=== PATIENT | male | born 1980 | race Hispanic/Latino ===

== ENCOUNTER 2016-05-09 19:46 | Emergency (ER) | payer OTHER ==
[~2016-05-09] VITALS: Ht 162.6 cm; Wt 100.0 kg
--- NOTE | 2016-05-09 19:44 | ED.REPORT ---
HPI-Abd Pain M Under 40 Date of Service May 09, 2016 ED Provider: Gee Wills DO Pt is a 36 y.o. male who presents to the ED via EMS c/o sudden onset severe abdominal pain. Pt describes pain as "twisting of his intestines" and reports that it improves if he is still for an extended period of time and that pain decreases when pressure is applied. Per EMS pt was wrestling with his daughter on the ground when the pain occurred, when they arrived pt was hypertensive and tachycardic. Pt was lying in a prone position with a blanket under his abdomen, they transported him in this same position. Upon examination pt states pain is improved and is no longer in prone position. He denies changes in BM. Nursing Notes Stated Complaint: ABDOMINAL PAIN Nursing Notes Reviewed: Yes Allergies: Coded Allergies: No Known Allergies (Unverified , 05/09/16) Scheduled PRN Cyclobenzaprine (Cyclobenzaprine) 10 Mg Tablet 10 MG PO TID PRN PRN Spasm General Time Seen by MD: 19:44 Chief Complaint Abdominal pain Hx Obtained From: Patient, EMS Arrived By: Ambulance Sudden in Onset?: Yes Onset Occurred: Just prior to arrival Symptom Duration: Since onset Location: : Periumbilical Quality: Painful Severity: Current: Severe Recent Healthcare: No recent doctor visit, No recent hospitalization Past Medical History Past Medical History None reported Past Surgical History Hand Social History Other Social History: Good social support, Ambulatory Status Independent Review of Systems GI: Reports: Abdominal pain, Denies: Constipation, Diarrhea Complete sys rev & neg: except as marked. Physical Exam Initial Vital Signs Initial VS: Reviewed Head / Eyes: Atraumatic, Normocephalic Extremities: Vascular intact, Neuro intact Skin: Warm, Dry, No cyanosis Neurologic: Alert, Oriented, Nonfocal Psychiatric: Mood/affect normal, Behavior normal, Normal thought content General/Constitutional: Awake, Alert Appearance / Presentation: Positive: In pain, Obese, Uncomfortable Respiratory / Chest: Atraumatic, Breath sounds NL, Breath sounds = bilat, No respiratory distress, No rales, No rhonchi, No wheezing, No retractions, No stridor Cardiovascular: Regular rhythm, Heart sounds NL, No gallop, No murmurs, No rubs , Peripheral circulation NL Heart Rate / Rhythm: Positive: Tachycardia Abdomen: Atraumatic, No guarding, No rebound, No hernia, No palpable mass, No pulsatile mass Tenderness/Guarding/Rebound: Positive: Tender periumbilical Bowel Sounds / Distention: Positive: Distention mild Back: Atraumatic Interpretation & Diagnostics Lab Results Interpretation Test 05/09/16 20:05 05/09/16 21:12 White Blood Count 9.0th/mm3 (3.8-10.1) Red Blood Count 4.85mil/mm3 (4.40-5.80) Hemoglobin 14.1g/dL (13.8-17.2) Hematocrit 40.3% (41.0-50.0) Mean Corpuscular Volume 83.1fL (81-100) Mean Corpuscular Hemoglobin 29.1pg (27.0-35.0) Mean Corpuscular Hemoglobin Concent 35.0% (32.0-37.0) Red Cell Distribution Width 13.0% (12.3-15.4) Platelet Count 217bil/L (150-400) Neutrophils (%) (Auto) 49.9% (40-74) Lymphocytes (%) (Auto) 36.2% (14-46) Monocytes (%) (Auto) 11.4% (4-12) Eosinophils (%) (Auto) 2.0% (0-5) Basophils (%) (Auto) 0.3% (0-3) Prothrombin Time 10.0sec (8.1-12.5) Prothromb Time International Ratio 0.94ratio Sodium Level 135mEq/L (134-144) Potassium Level 3.7mEq/L (3.5-5.2) Chloride Level 97mEq/L (97-108) Carbon Dioxide Level 26mmol/L (18-29) Blood Urea Nitrogen 14mg/dL (6-20) Creatinine 0.93mg/dL (0.76-1.27) Estimat Glomerular Filtration Rate 98mL/min (>59) Glucose Level 112mg/dL (60-99) Lactic Acid Level 1.6mmol/L (0.4-2.0) Calcium Level 8.2mg/dL (8.5-10.1) Magnesium Level 2.1mg/dL (1.6-2.6) Total Bilirubin 0.3mg/dL (0.0-1.2) Aspartate Amino Transf (AST/SGOT) 20U/L (0-50) Alanine Aminotransferase (ALT/SGPT) 44U/L (0-44) Alkaline Phosphatase 51U/L (25-150) Total Protein 6.9g/dL (6.4-8.4) Albumin 3.9g/dL (3.4-5.0) Lipase 23U/L (13-60) Urine Color Yellow (YELLOW) Urine Appearance Clear (CLEAR,HAZY) Urine pH 7.0 (5.0-8.0) Urine Specific [place] 1.010 (1.003-1.035) Urine Protein Negativemg/dL (NEG,TRACE) Urine Glucose (UA) Negativemg/dL (NEGATIVE) Urine Ketones Negativemg/dL (NEGATIVE) Urine Occult Blood Negative (NEGATIVE) Urine Nitrite Negative (NEGATIVE) Urine Bilirubin Negative (NEGATIVE) Urine Urobilinogen Normalmg/dL (NORMAL) Urine Leukocyte Esterase Negative (NEGATIVE) Urine RBC 0-2/hpf (0-2) Urine WBC 0-5/hpf (0-5) Urine Epithelial Cells Few/hpf (NONE-MOD) Urine Crystals None seen (NONE SEEN) Urine Bacteria Few/hpf (NONE-FEW) Urine Hyaline Casts None/lpf (NONE) Urine Granular Casts None seen (NONE SEEN) Urine Waxy Casts None seen (NONE SEEN) Urine Red Blood Cell Casts None seen (NONE SEEN) Urine White Blood Cell Casts None seen (NONE SEEN) Urine Mucus None seen (None Seen) Urine Trichomonas None seen (NONE SEEN) Urine Yeast None (NONE SEEN) Urinalysis Comment None Urine Culture Reflexed Not indicated ECG Interpretation Time: 20:05 Interpreted by: ED physician Normal ECG Interpretation: Normal sinus rhythm Rhythm / Conduction: Tachycardia (139) Urinalysis Interpretation Urinalys reviewed and NL CT Abd / Pelvis Interpretation IMPRESSION: 1. Normal aorta. No aneurysm or dissection. 2. No findings to explain severe abdominal pain. 3. Small hiatal hernia. Dictated by: Meghna Pino M.D. on 05/09/2016 at 20:52 Approved by: Meghna Pino M.D. on 05/09/2016 at 20:59 Re-Eval/Medical Decision Med Decision/Clinical Course 36-year-old male who presented with excruciating abdominal pain was only relieved by laying on his stomach and applying pressure. He was sent for CT scan immediately upon arrival as EMS was very concerned about the severe amount pain in his abdomen and had to be scanned in a prone position due to pain. He was given 50 of fentanyl in the ambulance. He has a negative past medical history. A comprehensive workup was performed including a CT angiogram chest and abdomen to rule out aortic dissection/aneurysm was performed but all returned negative. Patient remained tachycardic and after he was given a total of 4 L his heart rate decreased from the 130s down to about 110. His abdominal pain was relieved with diazepam 10 mg. Lactic acid was negative making ischemic bowel less likely. There is no signs of appendicitis or other acute abdominal pathology. I think that his tachycardia could be related to anxiety and pain initially as well as some dehydration since it improved with fluids. His pain seems to be related to a bowel muscle spasm as I cannot localize not localize any other source and the pain seems to be superficial Source of Hx: Old records Re-Evaluation/Progress #1: Time of Eval: 21:35 Re-Evaluation/Progress Note: Pt rechecked. Pt states he is experiencing abdominal discomfort. Re-Evaluation/Progress #2: Time of Eval: 23:02 Patient Status: Pain resolved Re-Evaluation/Progress Note: Pt rehecked. Pt states he is feeling relaxed and his pain has resolved. Pt's abdomen is non-tender. Pt is still tachycardic, will administer additional fluids. Discussed plan for discharge and need for follow-up, pt understands and agrees with plan. Re-Evaluation/Progress #3: Time of Eval: 00:13 Re-Evaluation/Progress Note: Pt rechecked. Pt is still tachycardic. Counseled Regarding: Diagnosis, Lab results, Need for follow-up, When/why to return to ED Patient Discharge & Departure Primary Impression: Abdominal spasms Additional Impressions: Generalized abdominal pain Anxiety Ruled Out: Abdominal aortic aneurysm, Aortic dissection Disposition: Home Discharge Condition All VS Reviewed: Yes Condition: Stable Patient Instructions: Acute Abdominal Pain (ED) Additional Instructions: Thank you for entrusting us with your care today. You examination included interview, physical exam, lab work, abdominal CT scan, and EKG. You examination was reassuring and no serious mechanism for your abdominal pain was found. It appears you may have abdominal muscle spasms. I recommend you follow-up with your primary care provider next week. Return to the ED if you experience any new or worsening symptoms Referrals: [facility] Scribe Attestation Portions of this note were transcribed by Jason Guaman. Dr. Johann Castro personally performed the history, physical exam and medical decision-making; I reviewed and confirmed the accuracy of the information in the transcribed note. Signed by: Karissa Cunningham, 05/10/16 and 0024. copies to: [facility] Gee Wills DO May 09, 2016 19:44 JASON GUAMAN May 09, 2016 21:25 Referrals: [facility] Scribe Attestation Portions of this note were transcribed by Jason Guaman. Dr. Johann Castro personally performed the history, physical exam and medical decision-making; I reviewed and confirmed the accuracy of the information in the transcribed note. Signed by: Karissa Cunningham, 05/10/16 and 0024. copies to: [facility] Gee Wills DO May 09, 2016 19:44 JASON GUAMAN May 09, 2016 21:25 Gee Wills DO May 09, 2016 19:44 JASON GUAMAN May 09, 2016 21:25
[~2016-05-09 19:46] MED LIST: 0.9% Sodium Chloride 1,000 ML IV ONE; HYDROmorphone 1 mg/mL Inj IVPUSH PRN
[2016-05-09 19:52] VITALS: BP 145/99; PULSE 130; RESP 24; O2SAT 96
[2016-05-09 20:22] LABS: BASOPHILS % (AUTO) 0.3 % (0-3); MONOCYTES % (AUTO) 11.4 % (4-12); Mean Corpuscular Hemoglobin 29.1 pg (27.0-35.0); Mean Corpuscular Volume 83.1 fL (81-100); NEUTROPHILS % (AUTO) 49.9 % (40-74); Platelet Count 217 bil/L (150-400)
[2016-05-09 20:30] VITALS: BP 137/92; PULSE 128; RESP 18; O2SAT 95
[2016-05-09 20:36] LABS: INR 0.94 ratio
[2016-05-09 20:42] LABS: Magnesium 2.1 mg/dL (1.6-2.6)
--- NOTE | 2016-05-09 21:00 | DRSVH ---
PROCEDURE: CT ANG CHEST/ABD W/WO CONTRAST ([id number]) INDICATIONS: 36 year old man with severe abdominal pain, hypertension. TECHNIQUE: Precontrast 5 mm thick sections acquired from the lung apices to the iliac crests. After the adminis tration of intravenous contrast, 3 mm thick sections again acquired from the lung apices to the iliac crests. 3-dimensional maximum intensity projection (MIP) oblique sagittal and coronal reformats wer e then acquired, and/or 3-dimensional volume rendering reformats. For radiation dose reduction, the following was used: automated exposure control. COMPARISON: None. FINDINGS: Image quality: Excellent. AORTA: Normal caliber and patent. No dissection. Great vessels are normal. Celiac trunk, superior me senteric artery and inferior mesenteric artery are patent. Renal arteries are patent bilaterally. CHEST: Lungs and pleura: There is dependent atelectasis the anterior lungs bilaterally (the patient was sca nned in prone position). No acute airspace opacities. No pleural effusions or pneumothorax. Central and peripheral airways are patent and normal in caliber. Mediastinum: Heart size is normal. No pericardial effusion. No mediastinal or hilar adenopathy by size criteria. Central pulmonary arteries are normal in size. Esophagus is normal in caliber. Small hiatal hernia. Bones and chest wall: No axillary adenopathy by size criteria. Thyroid gland is normal. No suspici ous bony lesions. No vertebral body compression fractures. ABDOMEN: Solid organs: Liver and spleen are normal in size. Gallbladder is normal. Biliary system is non di lated. Pancreas enhances normally. No adrenal nodules. Both kidneys are normal in size and enhance ment, without hydronephrosis. Peritoneum and bowel: No free fluid or air. Bowel loops are normal in caliber and wall thickness. Air within the posterior stomach lumen is because that the patient was scant in prone position. Nodes and vessels: No retroperitoneal or mesenteric adenopathy by size criteria. Inferior vena cava is normal in morphology. Bones: No suspicious bony lesions. No vertebral body compression fractures. Miscellaneous: No ventral hernias. IMPRESSION: 1. Normal aorta. No aneurysm or dissection. 2. No findings to explain severe abdominal pain. 3. Small hiatal hernia. Dictated by: Meghna Pino M.D. on 05/09/2016 at 20:52 Approved by: Meghna Pino M.D. on 05/09/2016 at 20:59
[2016-05-09 21:20] VITALS: O2SAT 98
[2016-05-09 21:27] LABS: APPEARANCE,URINE CLEAR (CLEAR,HAZY); COLOR,URINE YELLOW (YELLOW); OCCULT BLOOD,URINE NEGATIVE (NEGATIVE); UROBILINOGEN,URINE NORMAL (NORMAL)
[2016-05-09 21:30] VITALS: BP 133/82; PULSE 128; RESP 18; O2SAT 96
[2016-05-09 22:30] VITALS: BP 138/98; PULSE 121; RESP 20; O2SAT 96
[2016-05-09] MEDS ORDERED: 0.9% Sodium Chloride 1,000 ML IV ONE ×2 (23:07)
[2016-05-09 23:30] VITALS: BP 135/86; PULSE 119; RESP 18; O2SAT 95
[2016-05-10] MEDS ORDERED: CYCL10TA9 PO (00:18)
[2016-05-10 00:33] VITALS: BP 135/86; PULSE 119; RESP 18; O2SAT 95
[2016-08-31] MEDS ORDERED: METH750T3 PO (13:09)
[2016-08-31] MEDS ORDERED: OMEP20CA11 PO (13:09)
[2016-08-31] MEDS ORDERED: SERT25TA6 PO (13:09)
[2016-08-31] MEDS ORDERED: TRAZ-115 PO (13:09)
== END 2016-05-10 00:34 | disposition home or self-care (01) ==
LOC: SED 19:46
DX: R10.84 Generalized abdominal pain (principal); F41.9 Anxiety disorder, unspecified
CPT/HCPCS: 36415; 71275; 74175; 80053; 81000; 83605; 83690; 83735; 85025; 85610; 93005; 96361; 96374; 99285; J1170; J7030; Q9967

== ENCOUNTER 2016-09-03 00:39 | Day surgery (SDC) | payer OTHER ==
[~2016-09-03] VITALS: Ht 162.6 cm; Wt 88.4 kg
[~2016-09-03 00:39] MED LIST changes: -0.9% Sodium Chloride 1,000 ML IV ONE; +CYCL10TA9 PO; -HYDROmorphone 1 mg/mL Inj IVPUSH PRN; +METH750T3 PO; +OMEP20CA11 PO; +SERT25TA6 PO; +Sodium Chloride LOK Flush 10 mL Syringe IVFLUSH SCH; +TRAZ-115 PO
[2016-09-03] MEDS ORDERED: Propofol 10,000 mCg/mL 20 mL Inj ONE (00:40)
[2016-09-03] MEDS ORDERED: fentaNYL-PF 50 mCg/mL 2 mL Inj ONE (00:40)
[2016-09-03] MEDS ORDERED: Lactated Ringer's 1,000 ML IV ONE ×2 (06:00)
[2016-09-03] MEDS ORDERED: fentaNYL-PF 50 mCg/mL 2 mL Inj IVPUSH PRN ×2 (06:00→10:40)
--- NOTE | 2016-09-03 07:02 | PCM.HPANE ---
Patient Data Surgeon Admitting Provider: Attending Provider:Humphrey Mcmillan MD Primary Care Physician:Kermit Enciso DO Other Provider: Reason for Visit Gerd, Sebaceous Head Cyst Ht/WT & BMI Height (Feet): 5 Height (Inches): 4 Weight (Kilograms): 89.35 Body Mass Index 33.00 Allergies Coded Allergies: hydrocodone (Verified Allergy, Intermediate, "confused", 09/03/16) amoxicillin (Verified Allergy, Unknown, 08/31/16) Past Anesthesia History Anesthesia History: Denies:: Abnormal Airway, Anesthesia Reactions, Difficult Intubation, Fam Anesthesia Reaction, Fam Malignant Hypertherm, Malignant Hyperthermia Diabetes History Hx Diabetes?: No MRSA MRSA: No Medications Reported Medications Naproxen Sodium (Aleve)220 Mg [id number] Mg PO 09/03/16 Trazodone 50 Mg Weedbg69 Mg PO HS Ref 0 08/31/16 Omeprazole 20 Mg Capsule.dr20 Mg PO BID Ref 0 08/31/16 Discontinued Reported Medications Methocarbamol 750 Mg Bfllga245 Mg PO QID PRN For Spasm Ref 0 08/31/16 Sertraline HCl (Sertraline)25 Mg Kmatta42 Mg PO DAILY 30 Days Ref 0 08/31/16 Discontinued Scripts Cyclobenzaprine 10 Mg Euuqox47 Mg PO TID PRN Spasm #14 TABLET Prov:Gee Wills DO 05/10/16 History History of ENT Problems?: No HEENT History: Denies:: Abnormal Airway Cataracts Difficult Intubation Dysphagia Glaucoma Hearing Problem Sinus Problem TMJ Denture Type: None Teeth Condition: Within Normal Limits Hx of Heart Problems?: No Cardiovascular History: Denies:: Congestive Heart Failure Hypertension Hx of Respiratory Problem?: No Respiratory History: Denies:: Tuberculosis Hx Neurologic Problems?: No Hx of GI Problems?: Yes Other GI Pertinent History: constipation Hx of Problems?: No Genitourinary History: Denies:: HX of Hemodialysis Kidney Stones Urinary Tract Infection Male Hx: Denies:: Prostate Problems Scrotal Mass Testicular Surgery Skin History: Denies:: History Skin Disorders? Pressure Ulcers Hx Musculoskeletal Problems?: No Hx of Psycho/Social Problems?: Yes Psycho Social History: Positive for:: Hx Depression Hx Surgeries?: Yes (left hand surgery, seaceous cyst) Hx Any Other Health Problems?: Yes Other History: Denies:: Cancer Hospitalization Hx Diabetes: No Hx Alcohol Use: YesHx Substance Use: NoHave You Smoked inLast 12 mo: No Stop/Bang S-Snoring: Do You Snore Loudly: No T-Tired: feel tired, fatigued: No O-Obsered: Observed not breath: No P-Blood Pressure: treated: No B- Body Mass Index > 35 kg/m2: No A- Age over 50: No N- Neck Large Circumference: No G- Gender Male: Yes JORGE ALBERTO Total Score: 1 Risk Assessment Category Category 1A: Patient has history of documented sleep apnea, and HAS NOT received any narcotic, sedative or anesthesia administration during this stay. Category 1B: Patient has history of documented sleep apnea, and HAS received any narcotic , sedative or anesthesia administration during this stay Category 2: Patient has SUSPECTED Obstructive Sleep Apnea, and HAS received any narcotic , sedative or anesthesia administration during this stay. Category 3: Patient has SUSPECTED Obstructive Sleep Apnea and HAS NOT received narcotic, sedative or anesthesia administration during this stay. Category 4: Outpatient in Procedural Areas with known sleep apnea or who screen positive for High Risk via the STOP/BANG questionnaire. Exam Exam General Appearance: Alert, Oriented X3, Cooperative HEENT/AIRWAY: MP 2, Neck Movement (from), Mouth Opening (wl) Lungs: Clear to Auscultation Heart: Exam Unremarkable Plan Impression Patient chart reviewed, patient interviewed and anesthestic plan with risks, benefits, and alternatives discussed, and informed consent obtained. ASA Physical Status: ASA2 Mod Systemic Disease Anesthetic Plan: MAC Bene/Risks/Altern/Consents: Yes HP Complete Prior to Induction: Yes Lee Collins MD September 03, 2016 07:01
[2016-09-03] MEDS ORDERED: LORazepam 1 mg Tablet PO PRN (07:05)
[2016-09-03] MEDS ORDERED: NAPR220C11 PO (08:45)
[2016-09-03 08:51] VITALS: BP 123/73; PULSE 84; RESP 16; O2SAT 98
[2016-09-03] MEDS ORDERED: Bupivacaine-MPF 0.25%/EPI 30 mL Inj INFILTRATE ONE (10:39)
[2016-09-03] MEDS ORDERED: Lidocaine 1% 50 mL Inj INFILTRATE ONE (10:39)
[2016-09-03] MEDS ORDERED: Lactated Ringer's 1,000 ML IV SCH (10:40)
[2016-09-03] MEDS ORDERED: hydrALAZINE 20 mg/mL Inj IVPUSH PRN (10:40)
[2016-09-03] MEDS ORDERED: EPHEDrine Sulfate 50 mg/mL Inj IVPUSH PRN (10:40)
[2016-09-03] MEDS ORDERED: Labetalol 5 mg/mL 4 mL Inj IV PRN (10:40)
[2016-09-03] MEDS ORDERED: Dexamethasone 4 mg/mL Inj IVPUSH PRN (10:40)
[2016-09-03] MEDS ORDERED: Lactated Ringer's 500 ML IV PRN (10:40)
[2016-09-03] MEDS ORDERED: Phenylephrine 10,000 mCg/mL Inj IVPUSH PRN (10:40)
[2016-09-03] MEDS ORDERED: Atropine 0.4 mg/mL Inj IVPUSH PRN (10:40)
[2016-09-03] MEDS ORDERED: HYDROmorphone 1 mg/mL Inj IVPUSH PRN (10:40)
[2016-09-03] MEDS ORDERED: Ondansetron 2 mg/mL 2 mL Inj IVPUSH PRN (10:40)
--- NOTE | 2016-09-03 11:41 | PCM.ANEP1 ---
Post Anesthesia PACU Phase 1 Assessment Vital Signs Vital Signs Date Time Temp Pulse Resp B/P Pulse Ox O2 Delivery O2 Flow Rate FiO2 09/03/16 08:51 36.3 84 16 123/73 98 Room Air Anesthetic Administered: MAC Level of Alertness: Awake, talking MALLORY's with Equal Strength: Yes Pain: No Nausea or Vomiting: No CV Function & Hydration Stable: No Airway Device: Oxygen Delivery: Room Air Lungs: Normal Air Movement PACU Phase 2 Assessment Complications: No Follow up Care: No Patient Instructions Provided: N/A Lee Collins MD September 03, 2016 11:41
[2016-09-03] MEDS ORDERED: oxyCODONE-Acetamin 5-325 mg Tablet PO PRN (11:45)
[2016-09-03 11:50] VITALS: BP 121/80; PULSE 82; O2SAT 97
[2016-09-03 12:15] VITALS: BP 134/89; PULSE 83; RESP 15; O2SAT 97
[2016-09-03 12:21] VITALS: BP 131/89; PULSE 87; RESP 14; O2SAT 98
[2016-09-03 13:00] VITALS: BP 135/92; PULSE 91; RESP 14; O2SAT 98
--- NOTE | 2016-09-03 13:03 | OP ---
[address] [address] OPERATIVE REPORT PATIENT: PEDRITO GREY : 1980 MR#: [id number] ADMIT: 09/03/2016 JOB ID: [id number] DATE OF SURGERY: 09/03/2016 ANESTHESIA: MAC with local. PREOPERATIVE DIAGNOSIS(ES): 1. Left parietal scalp cyst. 2. Chronic gastroesophageal reflux disease and abdominal pain. POSTOPERATIVE DIAGNOSIS(ES): OPERATIONS: 1. Esophagogastroduodenoscopy with biopsies. 2. Excision of left parietal scalp cyst which was aborted. SURGEON: Humphrey Mcmillan MD WEIGHT AND BALANCE CONTROL AGENT: Timothy Steele PA-C (The nurseryman assistant was required for the safe and timely completion of the case.) COMPLICATIONS: None. ESTIMATED BLOOD LOSS: Less than 5 mL. CONDITION: Satisfactory. SPECIMEN: 1. Antral biopsy. 2. Distal esophageal biopsies. 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 Biopsies were taken. The scalp cyst as demonstrated on the CT was eroding through the bone. However, the CT was quite old, and I was concerned that it had eroded all the way through and elected to abort the case. INDICATIONS/SIGNIFICANT HISTORY: The patient is a 36-year-old man who was referred to me in May for a scalp cyst. He has had a lump on his left parietal scalp since he was a child. A recent CT scan of the brain for other reasons demonstrated this was eroding through into the parietal bone. He was referred to me and elected to undergo excision in the OR. However, he was also seeing Gastroenterology for chronic GERD, and request was made to do an EGD. For reasons that are unclear, this case was delayed for a number of months. OPERATIVE TECHNIQUE: The patient was taken to the operating room and placed in the left lateral decubitus position. A procedural pause performed. Sedation was achieved, and the endoscope was slowly inserted through his mouth under direct visualization through the oropharynx down into the esophagus, stomach, and on into the duodenum. The scope was then slowly withdrawn. The antrum appeared atrophic. Biopsies were taken. Retroflexed view was obtained in the stomach. He had a grade 1 flap valve. The GE junction was at 42 cm. The GE junction was irregular with some tongues of salmon-colored mucosa extending out from the GE junction to the distal esophagus. Three biopsies of this were taken. The scope was then slowly withdrawn, examining the rest of the esophagus. The patient was then placed in the right lateral decubitus position. The left scalp was prepped and draped in standard surgical fashion. An elliptical incision was made over the lump, excising a small portion of skin to allow for better access. Dissection was carried down through subcutaneous tissue, and the aponeurosis of the scalp was then opened. The cystic lesion was fleshy colored, and there was a well demarcated line of bone. As I dissected around it I became concerned that this potentially had enlarged since the CT scan had been obtained and may have eroded all the way through the bone. A dose of Ancef was given. Eventually, concerned about the potential of getting into the Dura, Then, I decided to abort the case and refer him to Neurosurgery. The aponeurosis wasthen closed with running 3-0 Vicryl. Skin was closed using 4-0 Monocryl. Dermabond was applied. The entire procedure was well tolerated withoutapparent complication. MTDD
--- NOTE | 2016-09-09 14:12 | PATH ---
SURGICAL PATHOLOGY Attending Physician:Humphrey Mcmillan MD CASE STATUS: Signed Out PATIENT NAME: KAREN GREY PID: [id number] : 1980 DATE COLLECTED:09/03/2016 22:16 SPECIMEN: 1: Stomach, Antrum, Biopsy 2: Esophagus, Biopsy CLINICAL HISTORY: GERD, SCALP MASS 1). ANTRUM STOMACH, RULE OUT H.PYLORI 2). DISTAL ESOPHAGUS BIOPSY FINAL DIAGNOSIS: 1.GASTRIC ANTRUM, BIOPSY: GASTRIC ANTRUM WITH MILD CHRONIC ACTIVE GASTRITIS. Negative for Helicobacter organisms. Negative for intestinal metaplasia. No evidence of dysplasia or malignancy. 2.DISTAL ESOPHAGUS, BIOPSY: ESOPHAGEAL SQUAMOUS EPITHELIUM AND GASTRIC GLANDULAR MUCOSA WITH CHRONIC ACTIVE INFLAMMATION. Alcian blue stain - Negative for intestinal metaplasia. No evidence of dysplasia or malignancy. [id number] GROSS DESCRIPTION: The specimen is received in two formalin filled containers labeled with the patient's name. 1). The specimen is sublabeled "antrum/stomach" and consists of a 0.4 x 0.3 x 0.2 CM portion of tissue which is entirely submitted in cassette 1A. 2). The specimen is sublabeled "distal esophagus" and consists of 4 portions of tissue which aggregate to 0.3 x 0.3 x 0.2 CM. The specimen is entirely submitted in cassette 2A. 09/03/2016 DAC MICRO DESCRIPTION: 1. The lamina propria of the gastric antrum is expanded by moderate numbers of acute and chronic inflammatory cells. An immunostain for Helicobacter organisms is done because of the acute inflammation and is negative. This test was developed and its performance characteristics determined by [facility]. It has not been cleared or approved by the U. S. Food and Drug Administration. The FDA has determined that such clearance or approval is not necessary. This test is used for clinical purposes. It should not be regarded as investigational or for research. ICD-9 CODES: CPT CODES: 1: 71232, 80913 2: 00945, 17319 Electronically Signed Out Tobias Davila MD [facility] [address], [place] [address] Technical component performed at [facility], [address], [place], [address]
== END 2016-09-03 23:59 | disposition home or self-care (01) ==
LOC: SAS 00:39
PROVIDERS: ATTEND General Practice
DX: K29.50 Unspecified chronic gastritis without bleeding (principal); K21.9 Gastro-esophageal reflux disease without esophagitis; L72.3 Sebaceous cyst; K59.00 Constipation, unspecified; R10.13 Epigastric pain; F32.9 Major depressive disorder, single episode, unspecified
CPT/HCPCS: 11420; 43239; J0690; J2250; J3010; J7120